=== PATIENT | female | born 1985 | race American Indian/Alaskan Native ===

== ENCOUNTER 2017-04-08 17:31 | Emergency (ER) | payer SELFPAY ==
[2017-04-08 17:43] VITALS: BP 122/79
[2017-04-08] MEDS ORDERED: ASPIRIN PO ONE (19:13)
== END 2017-04-08 19:15 | disposition left against medical advice (07) ==
LOC: ED 17:31
DX: R07.9 Chest pain, unspecified (principal); Z53.21 Procedure and treatment not carried out due to patient leaving prior to being seen by health care provider
CPT/HCPCS: 93005; 93010